=== PATIENT | female | born 1990 | race Caucasian/White ===

== ENCOUNTER 2017-05-02 09:21 | Inpatient (IN) | payer BC ==
[2017-05-02] MEDS: Lactated Ringers 1,000 ML IV SCH ×2 (09:59→13:18)
[2017-05-02] MEDS ORDERED: Water For Irrigation,Sterile 1,000 ML Container IRR PRN (10:05)
[2017-05-02] MEDS ORDERED: Misoprostol 200 MCG Tab PO PRN (10:05)
[2017-05-02] MEDS ORDERED: Methylergonovine 0.2 MG/1 ML Amp IM PRN (10:05)
[2017-05-02] MEDS ORDERED: fentaNYL 100 MCG/2 ML SDV ONE (10:05)
[2017-05-02] MEDS ORDERED: Sodium Chloride 0.9% 10 ML Syringe FLUSH PRN (10:05)
[2017-05-02] MEDS ORDERED: Lidocaine 1% 50 ML MDV INJECT PRN (10:05)
[2017-05-02] MEDS ORDERED: Sodium Chloride 0.9% 2.5 ML Syringe FLUSH PRN (10:05)
[2017-05-02] MEDS ORDERED: Carboprost Tromethamine 250 MCG/1 ML Amp IM PRN (10:05)
[2017-05-02] MEDS ORDERED: Nalbuphine 10 MG/1 ML Vial IVPUSH PRN (10:05)
[2017-05-02] MEDS ORDERED: Butorphanol 1 MG/ML SDV IVPUSH PRN (10:05)
[2017-05-02] MEDS ORDERED: Ropivacaine HCl/PF 100 ML ONE (10:05)
[2017-05-02] MEDS ORDERED: Oxytocin/Lactated Ringers 30 UNIT/500 ML BAG IV SCH (10:15)
--- NOTE | 2017-05-02 10:15 | PCM.PREANE ---
Preanesthetic Assessment - Anesthesia/Transfusion/Family Hx Anesthesia History: Prior Anesthesia Without Reaction Other Type of Anesthesia Reaction Comment: DENIES ANY PROBLEMS WITH ANESTHESIA - Review of Systems General: No Symptoms Pulmonary: No Symptoms Cardiovascular: No Symptoms Gastrointestinal: No Symptoms Neurological: No Symptoms Other: Reports: None - Physical Assessment Height: 5 ft 6 in Weight: 78.925 kg ASA Class: 2 Mental Status: Alert & Oriented x3 Airway Class: Mallampati = 2 Dentition: Reports: Normal Dentition Thyro-Mental Finger Breadths: 3 Mouth Opening Finger Breadths: 3 ROM/Head Extension: Full Lungs: Clear to Auscultation, Normal Respiratory Effort Cardiovascular: Regular Rate, Regular Rhythm - Lab Values: Laboratory Last Values WBC 13.32 K/uL (4.0-11.0) H 05/02/17 09:56 RBC 3.86 M/uL (4.30-5.90) L 05/02/17 09:56 Hgb 10.9 g/dL (12.0-16.0) L 05/02/17 09:56 Hct 33.6 % (36.0-46.0) L 05/02/17 09:56 MCV 87.0 fL (80.0-98.0) 05/02/17 09:56 MCH 28.2 pg (27.0-32.0) 05/02/17 09:56 MCHC 32.4 g/dL (31.0-37.0) 05/02/17 09:56 RDW Std Deviation 45.9 fl (28.0-62.0) 05/02/17 09:56 RDW Coeff of Joseph 14 % (11.0-15.0) 05/02/17 09:56 Plt Count 141 K/uL (150-400) L 05/02/17 09:56 MPV 12.00 fL (7.40-12.00) 05/02/17 09:56 Nucleated RBC % 0.0 /100WBC 05/02/17 09:56 Nucleated RBCs # 0 K/uL 05/02/17 09:56 - Allergies Allergies/Adverse Reactions: Allergies Allergy/AdvReac Type Severity Reaction Status Date / Time No Known Allergies Allergy Verified 06/12/14 17:17 - Acknowledgements Anesthesia Type Planned: Spinal, Epidural Pt an Appropriate Candidate for the Planned Anesthesia: Yes Alternatives and Risks of Anesthesia Discussed w Pt/Guardian: Yes Pt/Guardian Understands and Agrees with Anesthesia Plan: Yes PreAnesthesia Questionnaire - Past Health History Medical/Surgical History: Denies Medical/Surgical History HEENT History: Reports: None Cardiovascular History: Reports: None Respiratory History: Reports: None Gastrointestinal History: Reports: GERD Genitourinary History: Reports: None LOOM CHECKER History: Reports: : 3 Para: 1 LMP (Approximate): Musculoskeletal History: Reports: None Neurological History: Reports: None Psychiatric History: Reports: None Endocrine/Metabolic History: Reports: None Hematologic History: Reports: None Immunologic History: Reports: None Oncologic (Cancer) History: Reports: None Dermatologic History: Reports: None - Infectious Disease History Infectious Disease History: Reports: None - SUBSTANCE USE Smoking Status *Q: Never Smoker Tobacco Use Within Last Twelve Months: No Second Hand Smoke Exposure: No Days Per Week of Alcohol Use: 1 Number of Drinks Per Day: 0 Total Drinks Per Week: 0 Recreational Drug Use History: No - HOME MEDS Home Medications: Home Meds Albuterol [Ventolin HFA] 2 puff IH Q4HR PRN 09/07/14 [History] Calcium Carbonate/Vitamin D3 [Calcium 250+D] 1 tab PO TID 09/07/14 [History] Fish Oil/[place]-3 Fatty Acids [Fish Oil] 2,200 mg PO DAILY 09/07/14 [History] Vit No.130/Iron/FA [ Vitamins] 2 tab PO DAILY 09/07/14 [History ] Acetaminophen/Codeine [Tylenol with Codeine No.3 300MG/30MG] 1 - 2 tab PO Q4H PRN #20 tablet 09/08/14 [Rx] - CURRENT (IN HOUSE) MEDS Current Meds: Current Medications Butorphanol Tartrate (Stadol) 1 mg IVPUSH Q1H PRN PRN Reason: Pain Carboprost Tromethamine (Hemabate Ds) 250 mcg IM ASDIRECTED PRN PRN Reason: Post Hemorrhage Lactated Ringer's (Ringers, Lactated) 1,000 mls @ 150 mls/hr IV ASDIRECTED XAVI Oxytocin/Lactated Ringer's (Pitocin In Lr 30 Units/500 Ml) 30 unit in 500 mls @ 999 mls/hr IV TITRATE XAVI; 999 MUNITS/MIN PRN Reason: Protocol Stop: 05/02/17 10:46 Lidocaine HCl (Xylocaine 1%) 50 ml INJECT .ONCE PRN PRN Reason: Laceration repair Methylergonovine Maleate (Methergine) 0.2 mg IM ASDIRECTED PRN PRN Reason: Post Hemorrhage Misoprostol (Cytotec) 200 mcg PO .ONCE PRN PRN Reason: Post Hemorrhage Nalbuphine HCl (Nubain) 10 mg IVPUSH Q1H PRN PRN Reason: Pain (severe 7-10) Stop: 05/02/17 12:06 Sodium Chloride (Saline Flush) 10 ml FLUSH ASDIRECTED PRN PRN Reason: Keep Vein Open Sodium Chloride (Saline Flush) 2.5 ml FLUSH ASDIRECTED PRN PRN Reason: Keep Vein Open Sterile Water (Sterile Water For Irrigation) 1,000 ml IRR ASDIRECTED PRN PRN Reason: delivery Discontinued Medications Fentanyl (Sublimaze) Confirm Administered Dose 100 mcg .ROUTE .STK-MED ONE Stop: 05/02/17 10:06 Ropivacaine (Naropin 0.2%) Confirm Administered Dose 100 mls @ as directed .ROUTE .STK-MED ONE Stop: 05/02/17 10:06
[2017-05-02] MEDS ORDERED: Bupivacaine 0.5% 10 ML SDV ONE (10:40)
[2017-05-02] MEDS ORDERED: Docusate Sodium 100 MG Cap PO PRN (13:19)
[2017-05-02] MEDS ORDERED: Simethicone 80 MG Tab.Chew PO PRN (13:19)
[2017-05-02] MEDS ORDERED: Lanolin 100% Cream 7 GM Tube TOP PRN (13:19)
[2017-05-02] MEDS ORDERED: Witch Hazel Medicated Pads 40/Jar TOP PRN (13:19)
[2017-05-02] MEDS ORDERED: Bisacodyl 10 MG Supp RECTAL PRN (13:19)
[2017-05-02] MEDS ORDERED: oxyCODONE 5 MG Tab PO PRN (13:19)
[2017-05-02] MEDS ORDERED: Benzocaine/Menthol 20%-0.5% Spray 78 GM Cannister TOP PRN (13:19)
[2017-05-02] MEDS ORDERED: Ibuprofen 400 MG Tab PO PRN (13:19)
[2017-05-02] MEDS ORDERED: Acetaminophen 500 MG Tab PO PRN ×2 (13:19)
[2017-05-02] MEDS ORDERED: Aluminum Hydroxide/Magnesium Hydroxide/Simethicone Susp 30 ML Cup PO PRN (13:19)
--- NOTE | 2017-05-02 18:07 | OR ---
SURGEON: Daina Bryan M.D. DATE OF PROCEDURE: 05/02/2017 PREOPERATIVE DIAGNOSES: 1. A 38 and 5-week intrauterine . 2. Active labor. POSTOPERATIVE DIAGNOSES: 1. A 38 and 5-week intrauterine . 2. Active labor. PROCEDURE: Spontaneous vaginal delivery, second-degree midline laceration repair. ESTIMATED BLOOD LOSS: 300 mL. ANESTHESIA: Epidural. COMPLICATIONS: None known. FINDINGS: Term female, score 8 at 1 minute and 9 at 5 minutes, weight of 3980 g. Spontaneous delivery, intact placenta, 3-vessel cord. DISPOSITION: Infant to nursery, mom in LDRP. PROCEDURE IN DETAIL: Gilda is a 26-year-old, G3, P1, at 38 and 5 weeks' gestational age. She presented this morning with regular intense contractions. On initial examination, she was found to be 7 cm. She was admitted, routine labs were drawn, IV hydration was initiated. heart tones were 130s with variability category I. The patient was requesting regional anesthesia in the form of epidural. She underwent this satisfactorily. She was found to be 8 cm, 90% effaced, -1 station. Amniotomy was performed. Clear fluid was returned. The patient continued to labor over the next approximately an hour. At that time, she was feeling increased pressure and was found to be complete 100% effaced, +2 station, began pushing efforts, and pushed adequately until +3 station. I was called for delivery shortly after 12:30 p.m. Upon my arrival, the patient was placed in modified dorsal lithotomy position. She was prepped and draped in usual aseptic manner. She continued with pushing efforts. With the next two contractions, she was able to push to deliver infant's head atraumatically, spontaneously, followed by anterior shoulder, posterior shoulder, and remainder of the body. 's oropharynx and nares were bulb suctioned. Cord clamped x2 and cut. was handed off to her mother with attending nursing staff at her side. Cord arterial, cord venous, and cord blood sampling were obtained. Light suprapubic pressure was applied while the placenta was delivered spontaneously intact. Vigorous fundal uterine massage was then applied while 20 units of Pitocin was delivered in 500 mL IV fluid. Upon inspection of cervix, vaginal sidewalls, and perineum, there was found to be a second-degree midline laceration. This was repaired using 3-0 Vicryl with a [id number] deep subcutaneous tissues to initiate followed by repair of the remainder of second-degree in usual fashion. Uterus remained firm. Hemostasis evident. Sponge count and needle count were correct. The patient will remain in LDRP. in nursery. YASMEEN / JULY /[id number]
[2017-05-02] MEDS: Ibuprofen 800 MG Tab PO PRN (20:16)
[2017-05-03] MEDS: Ibuprofen 800 MG Tab PO PRN (05:24)
--- NOTE | 2017-05-03 05:33 | PCM48HPAN ---
Post Anesthesia Note - EVALUATION WITHIN 48HRS OF ANESTHETIC Vital Signs in Normal Range: Yes Patient Participated in Evaluation: Yes Respiratory Function Stable: Yes Airway Patent: Yes Cardiovascular Function Stable: Yes Hydration Status Stable: Yes Pain Control Satisfactory: Yes Nausea and Vomiting Control Satisfactory: Yes Mental Status Recovered: Yes
--- NOTE | 2017-05-03 08:02 | PCM.PNPP ---
- General Info Date of Service: 05/03/17 Functional Status: Reports: Pain Controlled, Tolerating Diet, Ambulating, Urinating - Review of Systems General: Denies: Fever, Weakness Pulmonary: Denies: Shortness of Breath Cardiovascular: Denies: Chest Pain, Palpitations, Lightheadedness Gastrointestinal: Denies: Abdominal Pain, Nausea, Vomiting Genitourinary: Denies: Flank Pain Neurological: Reports: No Symptoms Psychiatric: Reports: No Symptoms - General Info Date of Service: 05/03/17 - Patient Data Vital Signs - Most Recent: Last Vital Signs Temp 37.3 C 05/03/17 05:20 Pulse 57 L 05/03/17 05:20 Resp 18 05/03/17 05:20 BP 119/71 05/03/17 05:20 Pulse Ox 98 05/03/17 05:20 Weight - Most Recent: 78.925 kg Lab Results - Last 24 Hours: Laboratory Results - last 24 hr 05/02/17 05/02/17 05/03/17 Range/Units 09:56 09:56 05:51 WBC 13.32 H (4.0-11.0) K/uL RBC 3.86 L (4.30-5.90) M/uL Hgb 10.9 L 9.8 L (12.0-16.0) g/dL Hct 33.6 L 30.2 L (36.0-46.0) % MCV 87.0 (80.0-98.0) fL MCH 28.2 (27.0-32.0) pg MCHC 32.4 (31.0-37.0) g/dL RDW Std Deviation 45.9 (28.0-62.0) fl RDW Coeff of Joseph 14 (11.0-15.0) % Plt Count 141 L (150-400) K/uL MPV 12.00 (7.40-12.00) fL Nucleated RBC % 0.0 /100WBC Nucleated RBCs # 0 K/uL Blood Type A POSITIVE Antibody Screen NEGATIVE Med Orders - Current: Current Medications Acetaminophen (Tylenol Extra Strength) 500 mg PO Q4H PRN PRN Reason: Pain Acetaminophen (Tylenol Extra Strength) 1,000 mg PO Q4H PRN PRN Reason: Pain Last Admin: 05/03/17 05:25 Dose: 1,000 mg Al Hydroxide/Mg Hydroxide (Mag-Al Plus) 30 ml PO Q8H PRN PRN Reason: Heartburn Benzocaine/Menthol (Dermoplast Pain Relief 20%-0.5% [place]) 78 gm TOP ASDIRECTED PRN PRN Reason: Perineal Comfort Measure Last Admin: 05/02/17 15:16 Dose: 1 can Bisacodyl (Dulcolax) 10 mg RECTAL .ONCE PRN PRN Reason: Constipation Carboprost Tromethamine (Hemabate Ds) 250 mcg IM ASDIRECTED PRN PRN Reason: Post Hemorrhage Docusate Sodium (Colace) 100 mg PO BID PRN PRN Reason: Constipation Emollient Ointment (Lansinoh Hpa) 0 gm TOP ASDIRECTED PRN PRN Reason: Sore Nipples Last Admin: 05/02/17 15:16 Dose: 1 applic Lactated Ringer's (Ringers, Lactated) 1,000 mls @ 150 mls/hr IV ASDIRECTED XAVI Last Admin: 05/02/17 13:18 Dose: 999 mls/hr Ibuprofen (Motrin) 400 mg PO Q4H PRN PRN Reason: Pain Ibuprofen (Motrin) 800 mg PO Q6H PRN PRN Reason: Pain Last Admin: 05/03/17 05:24 Dose: 800 mg Methylergonovine Maleate (Methergine) 0.2 mg IM ASDIRECTED PRN PRN Reason: Post Hemorrhage Misoprostol (Cytotec) 200 mcg PO .ONCE PRN PRN Reason: Post Hemorrhage Oxycodone HCl (Oxycodone) 5 mg PO Q2H PRN PRN Reason: Pain Simethicone (Simethicone) 80 mg PO Q4H PRN PRN Reason: Gas Sodium Chloride (Saline Flush) 10 ml FLUSH ASDIRECTED PRN PRN Reason: Keep Vein Open Witch [place] (Tucks) 1 pad TOP ASDIRECTED PRN PRN Reason: comfort care Last Admin: 05/02/17 15:16 Dose: 1 applicful Discontinued Medications Bupivacaine HCl (Sensorcaine-Mpf 0.5%) Confirm Administered Dose 10 ml .ROUTE .STK-MED ONE Stop: 05/02/17 10:41 Last Admin: 05/03/17 01:26 Dose: Not Given Butorphanol Tartrate (Stadol) 1 mg IVPUSH Q1H PRN PRN Reason: Pain Fentanyl (Sublimaze) Confirm Administered Dose 100 mcg .ROUTE .STK-MED ONE Stop: 05/02/17 10:06 Last Admin: 05/03/17 01:26 Dose: Not Given Oxytocin/Lactated Ringer's (Pitocin In Lr 30 Units/500 Ml) 30 unit in 500 mls @ 999 mls/hr IV TITRATE XAVI; 999 MUNITS/MIN PRN Reason: Protocol Stop: 05/02/17 10:46 Last Admin: 05/02/17 12:47 Dose: 999 munits/min, 999 mls/hr Ropivacaine (Naropin 0.2%) Confirm Administered Dose 100 mls @ as directed .ROUTE .[place]-MED ONE Stop: 05/02/17 10:06 Last Admin: 05/03/17 01:25 Dose: Not Given Lidocaine HCl (Xylocaine 1%) 50 ml INJECT .ONCE PRN PRN Reason: Laceration repair Nalbuphine HCl (Nubain) 10 mg IVPUSH Q1H PRN PRN Reason: Pain (severe 7-10) Stop: 05/02/17 12:06 Sodium Chloride (Saline Flush) 2.5 ml FLUSH ASDIRECTED PRN PRN Reason: Keep Vein Open Sterile Water (Sterile Water For Irrigation) 1,000 ml IRR ASDIRECTED PRN PRN Reason: delivery - Infant Interaction Support Person: - Recovery Exam Fundal Tone: Firm Fundal Level: At Umbilicus Fundal Placement: Midline Lochia Amount: Small Lochia Color: Rubra/Red Perineum Description: Intact, Minimal Bruising/Swelling, Edematous Episiotomy/Laceration: Approximated Bladder Status: Nonpalpable, Voiding Urinary Elimination: Voided - Exam General: Alert, Oriented Lungs: Normal Respiratory Effort Cardiovascular: Regular Rate, Regular Rhythm GI/Abdominal Exam: Soft, Non-Tender Extremities: Non-Tender, Pedal Edema (trace) Skin: Warm, Dry, Intact Psy/Mental Status: Alert, Normal Affect - Problem List & Annotations (1) Vaginal delivery SNOMED Code(s): 047611574 Code(s): O80 - ENCOUNTER FOR FULL-TERM UNCOMPLICATED DELIVERY Status: Acute Current Visit: Yes - Problem List Review Problem List Initiated/Reviewed/Updated: Yes - My Orders Last 24 Hours: My Active Orders 05/02/17 10:05 Heart Tones [RC] CONTINUOUS Non Stress Test [RC] PER UNIT ROUTINE May Shower [RC] ASDIRECTED Notify Provider [RC] PRN Up ad Eli [RC] ASDIRECTED Vaginal Exam [RC] PRN Vital Signs [RC] PER UNIT ROUTINE Carboprost Tromethamine [Hemabate DS] 250 mcg IM ASDIRECTED PRN Methylergonovine [Methergine] 0.2 mg IM ASDIRECTED PRN Misoprostol [Cytotec] 200 mcg PO .ONCE PRN Sodium Chloride 0.9% [Saline Flush] 10 ml FLUSH ASDIRECTED PRN Peripheral IV Insertion Adult [OM.PC] Routine Resuscitation Status Routine 05/02/17 10:15 Lactated Ringers [Ringers, Lactated] 1,000 ml IV ASDIRECTED 05/02/17 13:19 May Shower [RC] ASDIRECTED Up ad Eli [RC] ASDIRECTED Vital Signs [RC] PER UNIT ROUTINE Acetaminophen [Tylenol Extra Strength] 1,000 mg PO Q4H PRN Acetaminophen [Tylenol Extra Strength] 500 mg PO Q4H PRN Alum Hydrox/Mag Hydrox/Simeth [Mag-Al Plus] 30 ml PO Q8H PRN Benzocaine/Menthol [Dermoplast Pain Relief 20%-0.5% [place]] 78 gm TOP ASDIRECTED PRN Bisacodyl [Dulcolax] 10 mg RECTAL .ONCE PRN Docusate Sodium [Colace] 100 mg PO BID PRN Ibuprofen [Motrin] 400 mg PO Q4H PRN Ibuprofen [Motrin] 800 mg PO Q6H PRN Lanolin [Lansinoh HPA] See Dose Instructions TOP ASDIRECTED PRN Simethicone 80 mg PO Q4H PRN Witch [place] [Tucks] 1 pad TOP ASDIRECTED PRN oxyCODONE 5 mg PO Q2H PRN Assess Lochia [WOMSER] Per Unit Routine Assess Uterine Involution [WOMSER] Per Unit Routine Breast Pump [WOMSER] Per Unit Routine Ice Therapy [OM.PC] Per Unit Routine Perineal Care [OM.PC] Per Unit Routine Peripheral IV Discontinue [OM.PC] Routine Sitz Bath [OM.PC] Per Unit Routine 05/02/17 14:30 Admission Status [Patient Status] [ADT] Routine 05/02/17 Lunch Regular Diet [DIET] 05/03/17 07:59 Ready for Discharge [RC] PER UNIT ROUTINE - Assessment Assessment:: PPD 1 status post /2nd MLL - Plan Plan:: Patient doing well overall, would like to go home later today. Discharge instructions reviewed. Infection and bleeding warnings reviewed. Follow up at [facility] 6 weeks.
[2017-05-03 12:06] VITALS: BP 125/78
== END 2017-05-03 14:35 | disposition home or self-care (01) | DRG 560 ==
LOC: MW.OBCHECK 09:21 → MW.OB 09:25 → MW.OBCHECK 09:37 → MW.OB 12:46 → OBSVTOIN 12:46 → MW.OB 16:55
PROVIDERS: ADMIT Obstetrics & Gynecology; ATTEND Obstetrics & Gynecology
PROC: 10E0XZZ Delivery of Products of Conception, External Approach (ICD-10-PCS; principal; 2017-05-02)
PROC: 0KQM0ZZ Repair Perineum Muscle, Open Approach (ICD-10-PCS; 2017-05-02)
DX: O70.1 Second degree perineal laceration during delivery (principal); Z3A.38 38 weeks gestation of pregnancy; Z37.0 Single live birth
CPT/HCPCS: 01967; 36415; 59025; 85014; 85018; 85027; 86850; 86900; 86901; A9270-GY; J7120